=== PATIENT | male | born 1955 | race Caucasian/White ===

== ENCOUNTER 2017-12-24 00:54 | Emergency (ER) | payer MEDICARE, OTHER ==
[~2017-12-24] VITALS: Ht 175.3 cm; Wt 86.2 kg
[~2017-12-24 00:54] MED LIST: ALBIPROI INH; AMOX875 PO; Ativan1 MG SL; BENZ100A PO; Bactrim Ds Tab1 EACH PO; CEPH500 PO; CYCL10 PO; DIAZ10; DIAZ10 PO; DIAZ5 PO; HYDACE5 PO; IBUP600 PO; IBUP800 PO; MECL25 PO; NAPR375 PO; NAPR500; Norco 5-325 Ta1 EACH PO; OXYACE5T PO; OXYACE7.5T PO; OXYC10ER PO; PROACE100; Percocet 5-3251 EACH PO; RXCYCL10 PO; RXOXYACE PO; RXTRAM50 PO; SAW PALMETO; TAMS.4ER PO; Ultram50 MG PO
[2017-12-24] MEDS ORDERED: ERYT1OIN RIGHTEYE (01:41)
[2018-10-14] MEDS ORDERED: MUPI1NAS TOP (16:29)
== END 2017-12-24 02:46 | disposition home or self-care (01) ==
LOC: ER 00:54
DX: H57.11 Ocular pain, right eye (principal); Z88.8 Allergy status to other drugs, medicaments and biological substances; I25.2 Old myocardial infarction
CPT/HCPCS: 99283

== ENCOUNTER 2018-02-24 19:08 | Emergency (ER) | payer MEDICARE ==
[~2018-02-24] VITALS: Ht 175.3 cm; Wt 81.7 kg
[~2018-02-24 19:08] MED LIST changes: +ERYT1OIN RIGHTEYE
[2018-02-24] MEDS ORDERED: Cyclobenzaprine5 MG PO (20:12)
== END 2018-02-24 20:20 | disposition home or self-care (01) ==
LOC: ER 19:08
DX: M54.2 Cervicalgia (principal); Y04.8XXA Assault by other bodily force, initial encounter; Z88.5 Allergy status to narcotic agent
CPT/HCPCS: 72125; 96372; 99284; J1885

== ENCOUNTER 2019-03-16 21:38 | Emergency (ER) | payer MEDICARE, SELFPAY ==
[~2019-03-16] VITALS: Ht 175.3 cm; Wt 90.7 kg
[~2019-03-16 21:38] MED LIST changes: +Cyclobenzaprine5 MG PO; +MUPI1NAS TOP
[2019-03-16 22:20] LABS: BASOPHILS ABSOLUTE AUTO 0.03 K/mm3 (0.00-0.23); BASOPHILS PERCENT AUTO 0 % (0-2); EOSINOPHILS ABSOLUTE AUTO 0.11 K/mm3 (0.00-0.68); EOSINOPHILS PERCENT AUTO 1 % (0-6); Hemoglobin 15.1 g/dL (13.5-17.5); IMMATURE GRAN ABSOLUTE AUTO 0.02 K/mm3 (0.00-0.10); IMMATURE GRAN PERCENT AUTO 0 % (0-1); LYMPHOCYTES PERCENT AUTO 15 % (21-46); MONOCYTES ABSOLUTE AUTO 0.76 K/mm3 (0.16-1.47); MONOCYTES PERCENT AUTO 8 % (4-13); Mean Corpuscular HGB 32.1 pg (26.0-34.0); Mean Corpuscular HGB Conc 33.6 g/dL (31.5-36.5); Mean Corpuscular Volume 96 fL (80-100); Mean Platelet Volume 10.9 fL (9.1-12.4); NEUTROPHILS PERCENT AUTO 75 % (41-73); Platelet Count 199 K/mm3 (150-400); RDW Coefficient Variation 12.7 % (11.7-14.2); RDW Standard Deviation 45.5 fL (35.1-46.3); White Blood Cell Count 9.12 K/mm3 (4.00-11.30)
[2019-03-16 22:36] LABS: Alanine Aminotransfer (ALT/SGP 22 U/L (12-78); Albumin/Globulin Ratio 1.3 (0.8-1.8); Alk Phos 45 U/L (50-136); Anion Gap 8 mmol/L (6-16); Aspartate Aminotrans (AST/SGOT 8 U/L (12-37); Bilirubin, Total 0.6 mg/dL (0.1-1.0); Blood Urea Nitrogen 14 mg/dL (8-24); Bun/Creatinine Ratio 16.9 (12.0-20.0); CO2, Blood 25 mmol/L (21-32); Chloride, Blood 109 mmol/L (98-108); Creatinine, Blood 0.83 mg/dL (0.60-1.20); Glomerular Filtration Rate >60 (60-); Glucose, Blood 104 mg/dL (70-99); Potassium, Blood 3.6 mmol/L (3.5-5.5); Sodium, Blood 142 mmol/L (136-145)
[2019-03-17] MEDS ORDERED: Flagyl500 MG PO (00:15)
== END 2019-03-17 00:58 | disposition home or self-care (01) ==
LOC: ER 21:38
PROVIDERS: Emergency Medicine
DX: A09 Infectious gastroenteritis and colitis, unspecified (principal); I25.2 Old myocardial infarction
CPT/HCPCS: 80053; 83690; 85025; 99284; J7030

== ENCOUNTER → 2019-03-18 | Outpatient (CLI) | payer MEDICARE, SELFPAY ==
[~2019-03-18] MED LIST changes: +Flagyl500 MG PO
== END | disposition home or self-care (01) ==
LOC: LAB 12:10 → LAB SHORT 12:10
DX: R19.7 Diarrhea, unspecified (principal)
CPT/HCPCS: 87493

== ENCOUNTER → 2019-09-07 | Outpatient (CLI) | payer MEDICARE | LOC: LAB 11:38 → LAB SHORT 11:38 | DX: L71.8 Other rosacea (principal) | CPT/HCPCS: 87070; 87205 ==

== ENCOUNTER → 2019-11-17 | Outpatient (CLI) | payer MEDICARE | END | disposition home or self-care (01) | LOC: LAB 11:42 → LAB SHORT 11:42 | DX: L73.8 Other specified follicular disorders (principal) | CPT/HCPCS: 87070; 87077; 87186; 87205 ==

== ENCOUNTER → 2020-01-16 | Outpatient (CLI) | payer MEDICARE | END | disposition home or self-care (01) | LOC: LAB 16:14 → LAB SHORT 16:14 | DX: L08.0 Pyoderma (principal) | CPT/HCPCS: 87070; 87205 ==

== ENCOUNTER → 2020-05-03 | Outpatient (CLI) | payer MEDICARE | END | disposition home or self-care (01) | LOC: LAB 12:04 → LAB SHORT 12:04 | DX: L08.0 Pyoderma (principal) | CPT/HCPCS: 87070; 87205 ==

== ENCOUNTER 2024-03-07 15:24 | Inpatient (IN) | payer OTHER, MEDICARE ==
[~2024-03-07] VITALS: Ht 175.3 cm; Wt 94.1 kg
[2024-03-07] VITALS (13 sets, daily range): BP systolic 129–163; BP diastolic 78–113
[2024-03-07] MEDS ORDERED: NS 1,000 ML IV SCH ×2 (16:50→20:25)
[2024-03-07] MEDS ORDERED: Morphine Sulfate 10 MG/ML 1MLSYR IV ONE (16:55)
[2024-03-07] MEDS ORDERED: Ondansetron HCl 2 MG / ML 2ML Vial IV PRN (17:35)
[2024-03-07] MEDS ORDERED: Naloxone HCl 0.4MG / ML 1ML Vial IV PRN (17:40)
[2024-03-07] MEDS ORDERED: FentaNYL Citrate 50 MCG/ML 2 ML Injection IV PRN (17:40)
[2024-03-07] MEDS ORDERED: Acetaminophen 325 MG TABLET PO PRN (17:40)
[2024-03-07] MEDS ORDERED: Ketorolac Tromethamine 15mg Vial IV PRN (17:45)
[2024-03-07 17:52] LABS: BASOPHILS ABSOLUTE AUTO 0.05 K/mm3 (0.00-0.23); BASOPHILS PERCENT AUTO 0 % (0-2); EOSINOPHILS ABSOLUTE AUTO 0.07 K/mm3 (0.00-0.68); EOSINOPHILS PERCENT AUTO 0 % (0-6); Hematocrit 42.9 % (37.0-53.0); Hemoglobin 14.4 g/dL (13.5-17.5); IMMATURE GRAN ABSOLUTE AUTO 0.09 K/mm3 (0.00-0.10); IMMATURE GRAN PERCENT AUTO 1 % (0-1); LYMPHOCYTES PERCENT AUTO 10 % (21-46); MONOCYTES ABSOLUTE AUTO 1.04 K/mm3 (0.16-1.47); MONOCYTES PERCENT AUTO 6 % (4-13); Mean Corpuscular HGB Conc 33.6 g/dL (31.5-36.5); Mean Corpuscular Volume 95 fL (80-100); Mean Platelet Volume 10.3 fL (9.1-12.4); NEUTROPHILS PERCENT AUTO 83 % (41-73); Platelet Count 230 K/mm3 (150-400); White Blood Cell Count 18.35 K/mm3 (4.00-11.30)
[2024-03-07] MEDS ORDERED: Lactated Ringer's 1,000 ML IV SCH (18:00)
[2024-03-07] MEDS ORDERED: Midazolam HCl 1MG / ML 2ML Vial ONE (18:03)
[2024-03-07] MEDS ORDERED: propofoL 20 ML IV ONE (18:03)
[2024-03-07] MEDS ORDERED: Rocuronium Bromide 10 MG/ML 5ML Injection IV ONE (18:05)
[2024-03-07] MEDS ORDERED: Lactated Ringer's 1,000 ML IV ONE (18:11)
[2024-03-07 18:25] LABS: Albumin/Globulin Ratio 1.3 (0.8-1.8); Bilirubin, Total 0.7 mg/dL (0.1-1.0); Bun/Creatinine Ratio 17.3 (12.0-20.0); Creatinine, Blood 0.87 mg/dL (0.60-1.20); Potassium, Blood 4.2 mmol/L (3.5-5.5)
[2024-03-07] MEDS ORDERED: CeFAZolin Sodium 2,000 MG in NS 100 ML IV PRN (18:30)
[2024-03-07] MEDS ORDERED: CeFAZolin Sodium 1000 mg Vial ONE (18:38)
[2024-03-07] MEDS ORDERED: Dexamethasone Sod Phos 10 MG/ML 1ML VIAL ONE (18:41)
[2024-03-07] MEDS ORDERED: Ondansetron HCl 2 MG / ML 2ML Vial ONE (18:41)
[2024-03-07] MEDS ORDERED: FentaNYL Citrate 50 MCG/ML 2 ML Injection ONE (18:46)
[2024-03-07] MEDS ORDERED: HYDROmorphone HCl/Pf 1MG SYR ONE (18:52)
[2024-03-07] MEDS ORDERED: Sugammadex Sodium 200 MG/2ML SDV (100 MG/ML) ONE (19:05)
[2024-03-07] MEDS ORDERED: Bupivacaine 0.5% HCl 5 MG/ML 30MLVIAL ONE (19:10)
[2024-03-07] MEDS ORDERED: Mupirocin 2% Ointment 22 GM TOP ONE (19:10)
[2024-03-07] MEDS ORDERED: Magnesium Hydroxide Conc 10 ML UDC PO PRN (20:25)
[2024-03-07] MEDS ORDERED: Bisacodyl 10 MG Supp PR PRN (20:25)
--- NOTE | 2024-03-07 20:30 | NUR ---
ARRIVAL TO UNIT FROM PACU. PT SLID OVER TO BED W/ SLIDE SHEET. VSS. PT MEDICATED FOR PAIN PER EMAR, FLUIDS STARTED PER ORDERS. BOTH LEGS ELEVATED ABOVE LEVEL OF HEART. PAS ON L LEG. WOUND VAC IN PLACE ON R LEG, DRAINING SEROUS DRAINAGE. CAP REFILL 3 SECS BILATERALLY, TOES WARM TO TOUCH, PT REPORTS FULL SENSATION IN BOTH FEET AND IS ABLE TO WIGGLE TOES. PT INSTRUCTED NARCOTICS AND/OR VICE DETECTIVE LIGHT.
[2024-03-07] MEDS ORDERED: Docusate Sodium 100 MG Cap PO SCH ×2 (21:00)
[2024-03-07] MEDS ORDERED: Lactobacil 2-S.Thermo-Bifido 1 1 Cap PO SCH (21:00)
[2024-03-07] MEDS ORDERED: HYDROmorphone HCl/Pf 1MG SYR IV PRN (21:15)
[2024-03-07] MEDS ORDERED: OxyCODONE HCL 5 MG TAB PO PRN (21:30)
[2024-03-08] MEDS ORDERED: CeFAZolin Sodium 1,000 MG in NS 100 ML IV SCH (02:00)
[2024-03-08 02:53] VITALS: BP 130/83
[2024-03-08] MEDS ORDERED: DiphenhydrAMINE HCL 25 MG Cap PO PRN (03:05)
[2024-03-08 05:30] LABS: BASOPHILS ABSOLUTE AUTO 0.01 K/mm3 (0.00-0.23); BASOPHILS PERCENT AUTO 0 % (0-2); EOSINOPHILS PERCENT AUTO 0 % (0-6); Hematocrit 35.2 % (37.0-53.0); Hemoglobin 11.7 g/dL (13.5-17.5); IMMATURE GRAN ABSOLUTE AUTO 0.02 K/mm3 (0.00-0.10); IMMATURE GRAN PERCENT AUTO 0 % (0-1); LYMPHOCYTES ABSOLUTE AUTO 0.76 K/mm3 (0.84-5.20); LYMPHOCYTES PERCENT AUTO 7 % (21-46); MONOCYTES ABSOLUTE AUTO 0.45 K/mm3 (0.16-1.47); MONOCYTES PERCENT AUTO 4 % (4-13); Mean Corpuscular HGB 31.3 pg (26.0-34.0); Mean Corpuscular HGB Conc 33.2 g/dL (31.5-36.5); Mean Corpuscular Volume 94 fL (80-100); Mean Platelet Volume 10.3 fL (9.1-12.4); NEUTROPHILS ABSOLUTE AUTO 9.13 K/mm3 (1.96-9.15); NEUTROPHILS PERCENT AUTO 88 % (41-73); Platelet Count 193 K/mm3 (150-400); RDW Coefficient Variation 12.9 % (11.7-14.2); RDW Standard Deviation 44.8 fL (35.1-46.3); Red Blood Cell Count 3.74 M/mm3 (4.30-5.90); White Blood Cell Count 10.37 K/mm3 (4.00-11.30)
[2024-03-08 06:14] LABS: Albumin, Blood 3.2 g/dL (3.4-5.0); Albumin/Globulin Ratio 1.2 (0.8-1.8); Bilirubin, Total 0.5 mg/dL (0.1-1.0); Calcium, Blood 8.7 mg/dL (8.5-10.1); Creatinine, Blood 0.75 mg/dL (0.60-1.20); Globulin, Blood 2.7 g/dL (2.2-4.0); Potassium, Blood 4.6 mmol/L (3.5-5.5); Total Protein, Blood 5.9 g/dL (6.4-8.2)
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
[2024-03-08 07:29] VITALS: BP 126/74
--- NOTE | 2024-03-08 11:40 | NUR ---
"Spiritual Care | attempted visit. Pt. welcomed my visit but also had another visitor. Pt. agreed to have this geophysical engineer return later in the day."
[2024-03-08 12:08] VITALS: BP 136/79
[2024-03-08] MEDS ORDERED: Polyethylene Glycol 3350 17 gm PO SCH (13:00)
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
[2024-03-08 15:35] VITALS: BP 134/67
--- NOTE | 2024-03-08 18:27 | NUR ---
SHIFT SUMMARY PT HAS DONE WELL TODAY. PAIN HAS BEEN CONTROLLED. EATING, DRINKING, & VOIDING. WOUND VAC WNL & SWELLING DECREASED BLE. PLAN FOR NPO AFTER MIDNIGHT FOR SURGERY TOMORROW.
[2024-03-08 20:04] VITALS: BP 128/70
[2024-03-09] VITALS (17 sets, daily range): BP systolic 130–181; BP diastolic 73–97
--- NOTE | 2024-03-09 06:02 | NUR ---
SHIFT SUMMARY POD2 R LEG FASCIOTOMY, INCISION SITES ON BOTH SIDES OF LOWER LEG TO WOUND VAC SUCTION W/ SANGUINOUS DRAINAGE. BLE ELEVATED PER DR. ROJO, CAP REFILL <3 SECS BILATERALLY, WARM TO TOUCH, PT ABLE TO WIGGLE ALL TOES, NO CHANGE IN SENSATION. PT MEDICATED FOR PAIN THROUGHOUT THE NIGHT PER EMAR W/ TOLERABLE RESULTS. ANTIBIOTICS GIVEN PER EMAR. PT USING CALL LIGHT APPROPRIATELY.
[2024-03-09 06:10] LABS: Bun/Creatinine Ratio 15.9 (12.0-20.0); Calcium, Blood 8.2 mg/dL (8.5-10.1); Creatinine, Blood 0.82 mg/dL (0.60-1.20); Potassium, Blood 4.2 mmol/L (3.5-5.5)
[2024-03-09] MEDS ORDERED: Lactated Ringer's 1,000 ML IV SCH ×2 (12:15→12:25)
[2024-03-09] MEDS ORDERED: propofoL 20 ML IV ONE (12:35)
[2024-03-09] MEDS ORDERED: Midazolam HCl 1MG / ML 2ML Vial ONE (12:35)
[2024-03-09] MEDS ORDERED: FentaNYL Citrate 50 MCG/ML 2 ML Injection ONE ×2 (12:35→14:20)
[2024-03-09] MEDS ORDERED: Rocuronium Bromide 10 MG/ML 5ML Injection IV ONE (12:36)
[2024-03-09] MEDS ORDERED: Dexamethasone Sod Phos 10 MG/ML 1ML VIAL ONE (13:06)
[2024-03-09] MEDS ORDERED: Ondansetron HCl 2 MG / ML 2ML Vial ONE (13:06)
--- NOTE | 2024-03-09 13:25 | NUR ---
03/09/24 1325 Damon Jimenez PT'S WOUND VAC REMOVED. PT ON SCHEDULED ANTIBIOTICS.
[2024-03-09] MEDS ORDERED: Bupivacaine 0.5% HCl 5 MG/ML 30MLVIAL ONE (13:36)
[2024-03-09] MEDS ORDERED: Sugammadex Sodium 200 MG/2ML SDV (100 MG/ML) ONE (13:58)
--- NOTE | 2024-03-09 14:45 | NUR ---
POST OP ARRIVAL VIA HOSPITAL BED, ALERT & PLEASANT. PPP. WIGGLES TOES. TURNER WRAP FROM TOES TO UPPER CALF. NO SHADOWING NOTED. PT ABLE TO LIFT BILAT LEGS TO ALLOW 2 PILLOWS PLACED UNDER EACH LEG TO ELEVATE. DENIES N/V. SNACKS & DRINKS GIVEN. PAIN IS TOLERABLE.
--- NOTE | 2024-03-09 19:26 | NUR ---
SHIFT SUMMARY PT REPORTS PAIN INCREASING POST OP. HAS KEPT BLE ELEVATED. PLEASANT, UPBEAT. RLE SWOLLEN, UNCHANGED POST OP.
--- NOTE | 2024-03-10 05:31 | NUR ---
SHIFT SUMMARY PT IS POD1 FOR CLOSING OF R LEG FASCIOTOMY. R FOOT ELEVATED ON PILLOWS, NO INCREASE IN SWELLING NOTED. PEDAL PULSES STRONG BILATERALLY, CAP REFILL <3 SECS AND PT CAN WIGGLE ALL TOES ON COMMAND. PAIN MANAGED WITH PAIN MEDS PER EMAR. TOLERATING REGULAR DIET. PT WAS ABLE TO REST MOST OF SHIFT, USING URINAL INDEPENDENTLY IN BED. VSS. PT USING CALL LIGHT APPROPRIATELY.
[2024-03-10 06:04] VITALS: BP 137/74
[2024-03-10 07:15] VITALS: BP 140/73
[2024-03-10 07:21] LABS: Bun/Creatinine Ratio 15.9 (12.0-20.0); Calcium, Blood 8.7 mg/dL (8.5-10.1); Creatinine, Blood 0.75 mg/dL (0.60-1.20); Potassium, Blood 4.1 mmol/L (3.5-5.5)
--- NOTE | 2024-03-10 11:28 | NUR ---
Pt. is awake sitting in a recliner and welcomes my visit. Pt. is pleasant and had just received an encouraging report from PT Sandhya. Pt. verbalizes of a redemptive life journey. Pt. displays evidence of being fully engaged and grateful for his hospital care. Consdier matters of nora and belief. Prayed with Pt. pt. verbalized gratitude for the spiritual care visit. Will remain available to the Pt.
[2024-03-10 15:28] VITALS: BP 142/75
--- NOTE | 2024-03-10 19:17 | NUR ---
SHIFT SUMMARY PT POD 0 CLOSURE OF FACIOTOMY TO RLE. TURNER WRAP HAS HAD NO DRAINAGE PRESENT THIS SHIFT. SWELLING AND PAIN TO RLE DECREASED T/O SHIFT. PAIN WELL MANAGED WITH PO PAIN MED AND IV TORADOL. CONTINUE IV ABX, SALINE LOCKED BETWEEN DOSES. VOIDING W/O DIFFICULTY USING URINAL.
[2024-03-10 20:05] VITALS: BP 154/72
[2024-03-10] MEDS ORDERED: NS 250 ML IV PRN (23:55)
[2024-03-11] MEDS ORDERED: Cephalexin Monohydrate 500 MG Cap PO SCH (00:40)
--- NOTE | 2024-03-11 04:28 | NUR ---
SHIFT SUMMARY PT HAS RESTED WELL T/O NIGHT. TURNER WRAP TO RLE REMAINS CDI. ELEVATED ON PILLOWS. NEUROVASCULAR CHECKS WNL. 2 ROXICODONE FOR PAIN MANAGEMENT. USING URINAL TO VOID. VSS. USES CALL LIGHT APPROPRIATELY.
[2024-03-11 05:27] VITALS: BP 146/72
[2024-03-11 07:59] VITALS: BP 153/75
--- NOTE | 2024-03-11 11:33 | NUR ---
REQUESTS TO WAIT FOR [facility] TO GO OVER DISCHARGE. STATES IS AT HOME TAKING A NAP.
[2024-03-11] MEDS ORDERED: CEPH500 PO (12:29)
[2024-03-11] MEDS ORDERED: Percocet 5-3251 EACH PO (12:30)
[2024-03-11] MEDS ORDERED: MIRALAX17 GM PO (12:30)
[2024-03-11] MEDS ORDERED: PROBIOTIC1 EA14 PO (12:30)
[2024-03-11] MEDS ORDERED: ASPI325EC PO (14:20)
[2024-03-11 15:01] VITALS: BP 142/82
--- NOTE | 2024-03-11 16:40 | NUR ---
DISCHARGE DISCUSSED DSICHARGE INSTRUCTIONS, WOUND CARE, MEDICATIONS, IMPORTANCE OF F/U & ABX w/ PT & . DRSG WAS CHANGED BY DR DAWN & PT WAS EDUCATED ON HOW TO CHANGE EARLIER IN THE DAY. RX GIVEN FOR NARCOTIC, OTHER MEDS WERE FAXED TO [facility]. ESCORTED OUT IN WC.
== END 2024-03-11 16:45 | disposition home or self-care (01) | DRG 982 ==
LOC: ER 15:24 → SURS 17:35
PROVIDERS: Internal Medicine; Orthopaedic Surgery; Student in an Organized Health Care Education/Training Program; ADMIT Student in an Organized Health Care Education/Training Program
PROC: 0KNS0ZZ Release Right Lower Leg Muscle, Open Approach (ICD-10-PCS; 2024-03-07)
PROC: 0KNS0ZZ Release Right Lower Leg Muscle, Open Approach (ICD-10-PCS; 2024-03-07)
PROC: 0KNS0ZZ Release Right Lower Leg Muscle, Open Approach (ICD-10-PCS; 2024-03-07)
PROC: 0KNS0ZZ Release Right Lower Leg Muscle, Open Approach (ICD-10-PCS; principal; 2024-03-07 18:30)
DX: S87.81XA Crushing injury of right lower leg, initial encounter (principal); T79.A21A Traumatic compartment syndrome of right lower extremity, initial encounter; T79.6XXA Traumatic ischemia of muscle, initial encounter; I25.10 Atherosclerotic heart disease of native coronary artery without angina pectoris; N40.0 Benign prostatic hyperplasia without lower urinary tract symptoms; B19.20 Unspecified viral hepatitis C without hepatic coma; W23.0XXA Caught, crushed, jammed, or pinched between moving objects, initial encounter; I25.2 Old myocardial infarction; Z79.899 Other long term (current) drug therapy; Z98.890 Other specified postprocedural states; Z88.5 Allergy status to narcotic agent
CPT/HCPCS: 36415; 73590; 73610; 73630; 80048; 80053; 82550; 83735; 85025; 93005; 93010; 94762; 96374; 97116; 97162; 97165; 97530; 97535; 99284-25; A9270; C1713; J0690; J1100; J1170; J1885; J2250; J2270; J2405; J2704; J3010; J7030; J7120

== ENCOUNTER 2024-03-23 04:32 | Day surgery (SDC) | payer OTHER, MEDICARE ==
[~2024-03-23 04:32] MED LIST changes: +ASPI325EC PO; +MIRALAX17 GM PO; +PROBIOTIC1 EA14 PO
== END 2024-03-23 23:14 | disposition home or self-care (01) ==
LOC: WOUND 04:32
DX: S87.81XA Crushing injury of right lower leg, initial encounter (principal); I25.10 Atherosclerotic heart disease of native coronary artery without angina pectoris; X58.XXXA Exposure to other specified factors, initial encounter
CPT/HCPCS: G0463

== ENCOUNTER 2024-05-13 10:00 | Day surgery (SDC) | payer OTHER, MEDICARE ==
[~2024-05-13] VITALS: Ht 175.3 cm; Wt 88.0 kg
[~2024-05-13 10:00] MED LIST changes: +Lactated Ringer's 1,000 ML IV ONE; +Ropivacaine 0.5% HCl/Pf 5 MG/ML 20ML VIAL ONE
[2024-05-13] MEDS ORDERED: CeFAZolin Sodium 2,000 MG VIAL ONE (10:20)
[2024-05-13] MEDS ORDERED: NS 50 ML IV ONE (10:20)
[2024-05-13] MEDS ORDERED: Lactated Ringer's 1,000 ML IV ONE (11:06)
[2024-05-13] MEDS ORDERED: Ropivacaine 0.5% HCl/Pf 5 MG/ML 20ML VIAL ONE (13:17)
[2024-05-13] MEDS ORDERED: Dexamethasone Sod Phos 10 MG/ML 1ML VIAL ONE (13:34)
[2024-05-13] MEDS ORDERED: Ondansetron HCl 2 MG / ML 2ML Vial ONE (13:34)
[2024-05-13] MEDS ORDERED: HYDROmorphone HCl/Pf 1MG SYR ONE (13:34)
[2024-05-13] MEDS ORDERED: propofoL 20 ML IV ONE (13:34)
[2024-05-13] MEDS ORDERED: EPINEPhrine HCl 1 MG/ML 1ML Amp XX ONE (14:27)
--- NOTE | 2024-05-13 14:34 | NUR ---
05/13/24 1434 Greta Miranda 0.5% RUPIVCAINE (30CC) MIXED WITH EPI (1MG/ML) (0.15MG) TO MAKE RUPIVCAINE 0.5% WITH EPI (1:200,000).
[2024-05-13] MEDS ORDERED: OxyCODONE HCL 5 MG TAB ONE (15:11)
[2024-05-13 15:27] VITALS: BP 167/74
== END 2024-05-13 15:50 | disposition home or self-care (01) ==
LOC: ORSCSDS 10:00
PROVIDERS: Podiatrist Foot & Ankle Surgery
PROC: 0LMV0ZZ Reattachment of Right Foot Tendon, Open Approach (ICD-10-PCS; principal; 2024-05-13 11:30)
DX: M77.51 Other enthesopathy of right foot and ankle (principal); K21.9 Gastro-esophageal reflux disease without esophagitis; Z79.82 Long term (current) use of aspirin
CPT/HCPCS: A9270; C1713; J0171; J0690; J1100; J1170; J2405; J2704; J2795; J7120